=== PATIENT | male | born 1955 | race African-American/Black ===

== ENCOUNTER 2022-01-19 12:42 | Emergency (ER) | payer OTHER ==
[2022-01-19 13:44] LABS: Absolute Lymphocytes (CBC) 1.8 K/uL (0.7-4.9); Hematocrit 39.5 % (39.6-49.0); Lymphocytes % 26.1 % (15.3-44.8); MPV 10.9 fL (7.6-11.3); RBC Red Blood Cell Count 4.26 M/uL (4.33-5.43)
[2022-01-19 13:46] LABS: Protime INR 1.04
[2022-01-19] MEDS ORDERED: MORPHINE 2 MG/ML SYR ONE (13:46)
[2022-01-19] MEDS ORDERED: ASPIRIN 81 MG CHEWABLE TABLET ONE (13:46)
[2022-01-19 14:00] LABS: Albumin 3.7 g/dL (3.4-5.0); Bilirubin Direct 0.1 mg/dL (0-0.2); Bilirubin Total 0.6 mg/dL (0.2-1.0); Magnesium 1.9 mg/dL (1.8-2.4); Potassium 4.2 mmol/L (3.5-5.1); Protein, Total 6.9 g/dL (6.4-8.2); Troponin High Sensitivity 19.8 pg/mL (<58.9)
--- NOTE | 2022-01-19 15:01 | RAD REPORT ---
EXAM DESCRIPTION: RAD - Chest Single View - 01/19/2022 2:40 pm CLINICAL HISTORY: CHEST PAIN Chest pain. COMPARISON: No comparisons FINDINGS: Portable technique limits examination quality. The lungs are grossly clear. The heart is normal in size. No displaced fractures. IMPRESSION: No acute intrathoracic process suspected.
[2022-01-19] MEDS ORDERED: KETOROLAC 30 MG/ML INJ ONE (16:07)
--- NOTE | 2022-01-19 18:16 | EDPHYS ---
Physician Documentation [facility] Name: Michele Noel Age: 66 yrs Sex: Male : 1955 Arrival Date: 01/19/2022 Time: 12:42 Bed 13 Private MD: ED Physician Hernan Higuera HPI: 01/19 13:05 This 66 yrs old Black Male presents to ER via Ambulatory with complaints of Chest Pain. cp 13:05 The patient or guardian reports chest pain that is located primarily in the anterior cp chest wall, left. 13:05 Onset: this morning, about 0600. The pain does not radiate. Associated signs and cp symptoms: Pertinent negatives: abdominal pain, diaphoresis, dizziness, lower extremity pain, lower extremity swelling, palpitations, shortness of breath, syncope. The chest pain is described as pulling. Duration: The patient or guardian reports a single episode, that is still ongoing. Modifying factors: the symptoms are aggravated by movement of left arm and movement of neck. Severity of pain: in the emergency department the pain is unchanged despite home interventions. Historical: - Allergies: 12:54 No Known Allergies; ld1 - PMHx: 12:54 Hypertensive disorder; ld1 - PSHx: 12:54 None; ld1 - Immunization history:: Adult Immunizations up to date, Client reports receiving the 2nd dose of the Covid vaccine. - Social history:: Smoking status: Patient denies any tobacco usage or history of. Patient/guardian denies using alcohol. ROS: 13:10 Constitutional: Negative for body aches, chills, fever, poor PO intake. cp 13:10 Cardiovascular: Positive for chest pain. cp 13:10 Eyes: Negative for injury, pain, redness, and discharge. cp 13:10 ENT: Negative for drainage from ear(s), ear pain, difficulty swallowing, difficulty handling secretions. 13:10 Respiratory: Negative for cough, shortness of breath, wheezing. 13:10 Abdomen/GI: Negative for abdominal pain, nausea, vomiting, and diarrhea. 13:10 Back: Negative for pain at rest, pain with movement. 13:10 Neuro: Negative for altered mental status, dizziness, headache, weakness. 13:10 All other systems are negative. Exam: 13:05 ECG was reviewed by the Attending Physician. cp 13:10 Constitutional: The patient appears in no acute distress, alert, awake, cp non-diaphoretic, non-toxic, well developed, well nourished, obese. 13:10 Head/Face: Normocephalic, atraumatic. cp 13:10 Eyes: Periorbital structures: appear normal, Conjunctiva: normal, no exudate, no injection, Sclera: no appreciated abnormality, Lids and lashes: appear normal, bilaterally. 13:10 ENT: External ear(s): are unremarkable, Nose: is normal, Mouth: Lips: moist, Oral mucosa: pink and intact, moist, Posterior pharynx: Airway: no evidence of obstruction, patent. 13:10 Chest/axilla: Inspection: normal, Palpation: crepitus, is not appreciated, tenderness, that is moderate, of the left clavicle and anterior aspect of left upper chest, that partially reproduces the patient's complaints. 13:10 Cardiovascular: Rate: normal, Rhythm: regular, Pulses: Pulses are 2+ in right radial artery and left radial artery. Edema: is not appreciated, JVD: is not appreciated. 13:10 Respiratory: the patient does not display signs of respiratory distress, Respirations: normal, no use of accessory muscles, no retractions, labored breathing, is not present, Breath sounds: are clear throughout, no decreased breath sounds, no stridor, no wheezing. 13:10 Abdomen/GI: Inspection: abdomen appears normal, Palpation: abdomen is soft and non-tender, in all quadrants. 13:10 Back: pain, is absent, ROM is normal. 13:10 Skin: cellulitis, is not appreciated, no rash present. 13:10 Neuro: Orientation: to person, place \T\ time. Mentation: is normal, Motor: moves all fours, strength is normal, Sensation: is normal. 17:33 ECG was reviewed by the Attending Physician. cp Vital Signs: 12:53 BP 127 / 73; Pulse 74; Resp 15; Temp 98.3(TE); Pulse Ox 98% on R/A; Weight 107.95 kg; ld1 Height 5 ft. 8 in. (172.72 cm); Pain 8/10; 14:14 BP 134 / 82; Pulse 65; Resp 12; Pulse Ox 98% ; bp 15:20 BP 128 / 83; Pulse 58; Resp 15; Pulse Ox 99% ; bp 16:30 BP 142 / 76; Pulse 62; Resp 15; Pulse Ox 99% ; bp 18:30 BP 162 / 81; Pulse 63; Resp 11; Pulse Ox 99% ; bp 12:53 Body Mass Index 36.19 (107.95 kg, 172.72 cm) ld1 MDM: 13:00 Patient medically screened. 13:30 Differential diagnosis: acute myocardial infarction, acute pericarditis, chest wall cp pain, costochondritis, pleurisy, pneumonia, pneumothorax, pulmonary embolus, stable angina, unstable angina. 18:09 HEART Score: History: Slightly Suspicious (0), ECG: Non specific repolarization cp disturbance / LBTB / PM (1), Age: > or = 65 years (2), Risk Factors: 1 or 2 risk factors (1), [Hypertension] [Obesity] Troponin: < or = 1 x Normal Limit (0). 18:15 Data reviewed: vital signs, nurses notes, lab test result(s), EKG, radiologic studies, cp plain films. 18:15 The patient was given aspirin in the Emergency Department. Test interpretation: by ED cp physician or midlevel provider: ECG, plain radiologic studies. 01/19 13:03 Order name: Basic Metabolic Panel; Complete Time: 14:17 01/19 14:17 Interpretation: Normal except: GLUC 115; BUN 24; CRE 1.54; GFR 49. 01/19 13:03 Order name: CBC with Diff; Complete Time: 14:17 01/19 18:07 Interpretation: Normal except: RBC 4.26; HGB 13.2; HCT 39.5. 01/19 13:03 Order name: LFT's; Complete Time: 14:17 01/19 13:03 Order name: Magnesium; Complete Time: 14:17 01/19 13:03 Order name: NT PRO-BNP; Complete Time: 14:17 01/19 13:03 Order name: PT-INR; Complete Time: 14:17 01/19 13:03 Order name: Troponin HS; Complete Time: 14:17 01/19 14:18 Interpretation: Reviewed. 01/19 13:03 Order name: XRAY Chest (1 view); Complete Time: 15:44 01/19 15:44 Interpretation: Report review. 01/19 13:03 Order name: EKG; Complete Time: 13:04 01/19 16:24 Order name: EKG; Complete Time: 16:25 01/19 16:42 Order name: Troponin High Sensitivity; Complete Time: 18:06 01/19 13:03 Order name: Cardiac monitoring; Complete Time: 13: 01/19 13:03 Order name: EKG - Nurse/Tech; Complete Time: 13:05 01/19 13:03 Order name: IV Saline Lock; Complete Time: 14:14 01/19 13:03 Order name: Labs collected and sent; Complete Time: 14:14 01/19 13:03 Order name: O2 Per Protocol; Complete Time: 13: 01/19 13:03 Order name: O2 Sat Monitoring; Complete Time: 13: 01/19 16:24 Order name: EKG - Nurse/Tech; Complete Time: 17:31 cp EC:05 Rate is 72 beats/min. Rhythm is regular. NJ interval is normal. QRS interval is normal. cp QT interval is normal. T waves are Inverted in leads II, III, aVF, V4, V5, V6. Interpreted by me. Reviewed by me. 17:33 Rate is 59 beats/min. Rhythm is regular. NJ interval is normal. QRS interval is normal. cp QT interval is normal. T waves are Inverted in lead aVR. Interpreted by me. Reviewed by me. Administered Medications: 13:30 Drug: Aspirin Chewable Tablet 324 mg Route: PO; bp 14:12 Follow up: Response: No adverse reaction; Pain is decreased bp 13:30 Drug: morphine 2 mg Route: IVP; Rate: calculated rate; Site: right hand; bp 14:12 Follow up: Response: No adverse reaction; Pain is decreased bp 16:00 Drug: TORadol - (ketorolac) 15 mg Route: IVP; Site: right hand; bp 17:31 Follow up: Response: Pain is decreased bp Disposition Summary: 01/19/22 18:15 Discharge Ordered Location: Home cp Problem: new cp Symptoms: are resolved cp Condition: Stable cp Diagnosis - Chest pain, unspecified cp Followup: cp - With: Private Physician - When: 2 - 3 days - Reason: Recheck today's complaints Discharge Instructions: - Discharge Summary Sheet cp - Nonspecific Chest Pain, Adult cp - Aspirin and Your Heart cp Forms: - Medication Reconciliation Form cp - Thank You Letter cp - Antibiotic Education cp - Prescription Opioid Use cp Prescriptions: - Diclofenac Sodium 75 mg Oral tablet,delayed release (DR/EC) - take 1 tablet by ORAL route 2 times per day; 20 tablet; Refills: 0, Product cp Selection Permitted Signatures: Dispatcher [employer] EDMS Сергей Mcqueen PA PA cp Peltier, Brian RN RN bp Lucila Renee RN RN ld1
--- NOTE | 2022-01-19 18:16 | ER ---
Nurse's Notes [facility] Name: Michele Noel Age: 66 yrs Sex: Male : 1955 Arrival Date: 01/19/2022 Time: 12:42 Bed 13 Private MD: Diagnosis: Chest pain, unspecified Presentation: 01/19 12:53 Chief complaint: Patient states: Woke up this morning and I began having chest pains - ld1 feels like its pulling on my heart. Coronavirus screen: At this time, the client does not indicate any symptoms associated with coronavirus-19. Ebola Screen: No symptoms or risks identified at this time. Initial Sepsis Screen: Does the patient meet any 2 criteria? No. Patient's initial sepsis screen is negative. Does the patient have a suspected source of infection? No. Patient's initial sepsis screen is negative. Risk Assessment: Do you want to hurt yourself or someone else? Patient reports no desire to harm self or others. Onset of symptoms was January 19, 2022 at 12:54. 12:53 Method Of Arrival: Ambulatory ld1 12:53 Acuity: DARRON 3 ld1 Triage Assessment: 12:54 General: Appears in no apparent distress. comfortable, Behavior is calm, cooperative, ld1 appropriate for age. Pain: Complains of pain in chest Pain does not radiate. Pain currently is 9 out of 10 on a pain scale. Quality of pain is described as pullinh. EENT: No signs and/or symptoms were reported regarding the EENT system. Neuro: Level of Consciousness is awake, alert, obeys commands, Oriented to person, place, time, situation. Cardiovascular: Capillary refill < 3 seconds Patient's skin is warm and dry. Rhythm is sinus rhythm. Respiratory: Airway is patent Respiratory effort is even, unlabored, Respiratory pattern is regular, symmetrical. GI:. Historical: - Allergies: 12:54 No Known Allergies; ld1 - PMHx: 12:54 Hypertensive disorder; ld1 - PSHx: 12:54 None; ld1 - Immunization history:: Adult Immunizations up to date, Client reports receiving the 2nd dose of the Covid vaccine. - Social history:: Smoking status: Patient denies any tobacco usage or history of. Patient/guardian denies using alcohol. Screenin:30 Abuse screen: Denies threats or abuse. Denies injuries from another. Nutritional bp screening: No deficits noted. Tuberculosis screening: No symptoms or risk factors identified. Fall Risk None identified. Assessment: 13:00 General: SEE TRIAGE NOTE. bp 14:15 Reassessment: No changes from previously documented assessment. Patient and/or family bp updated on plan of care and expected duration. Pain level reassessed. 15:20 Reassessment: No changes from previously documented assessment. Patient and/or family bp updated on plan of care and expected duration. Pain level reassessed. 17:36 Reassessment: Patient appears in no apparent distress at this time. Patient and/or iw family updated on plan of care and expected duration. Pain level reassessed. Patient is alert, oriented x 3, equal unlabored respirations, skin warm/dry/pink. pt states he is ready to leave, will wait for repeat troponin level, sent at 1730. 18:27 Pain: Pain began 1 day ago. bp 18:29 Reassessment: PT D/C HOME AMBULATORY WITH FAMILY, DX WITH NONCARDIAC CHEST PAIN. bp Vital Signs: 12:53 BP 127 / 73; Pulse 74; Resp 15; Temp 98.3(TE); Pulse Ox 98% on R/A; Weight 107.95 kg; ld1 Height 5 ft. 8 in. (172.72 cm); Pain 8/10; 14:14 BP 134 / 82; Pulse 65; Resp 12; Pulse Ox 98% ; bp 15:20 BP 128 / 83; Pulse 58; Resp 15; Pulse Ox 99% ; bp 16:30 BP 142 / 76; Pulse 62; Resp 15; Pulse Ox 99% ; bp 18:30 BP 162 / 81; Pulse 63; Resp 11; Pulse Ox 99% ; bp 12:53 Body Mass Index 36.19 (107.95 kg, 172.72 cm) ld1 ED Course: 12:42 Patient arrived in ED. am2 12:49 Handy Gannon, LAUREN is Primary Nurse. bp 12:50 Сергей Mcqueen PA is PHCP. cp 12:50 Hernan Higuera MD is Attending Physician. cp 12:54 Triage completed. ld1 12:54 Arm band placed on right wrist. ld1 13:04 EKG done, by ED staff. tm3 13:30 Patient has correct armband on for positive identification. Bed in low position. Call bp light in reach. Side rails up X2. Client placed on continuous cardiac and pulse oximetry monitoring. NIBP monitoring applied. 13:30 Inserted saline lock: 22 gauge in right hand, using aseptic technique. bp 14:42 XRAY Chest (1 view) In Process Unspecified. EDMS 18:26 No provider procedures requiring assistance completed. IV discontinued, intact, iw bleeding controlled, No redness/swelling at site. Pressure dressing applied. Patient maintains SpO2 saturation greater than 95% on room air. Administered Medications: 13:30 Drug: Aspirin Chewable Tablet 324 mg Route: PO; bp 14:12 Follow up: Response: No adverse reaction; Pain is decreased bp 13:30 Drug: morphine 2 mg Route: IVP; Rate: calculated rate; Site: right hand; bp 14:12 Follow up: Response: No adverse reaction; Pain is decreased bp 16:00 Drug: TORadol - (ketorolac) 15 mg Route: IVP; Site: right hand; bp 17:31 Follow up: Response: Pain is decreased bp Medication: 18:27 VIS not applicable for this client. iw Outcome: 18:15 Discharge ordered by . jesus 18:26 Discharged to home ambulatory, with family. iw 18:26 Condition: good 18:26 Discharge instructions given to patient, Instructed on discharge instructions, follow up and referral plans. medication usage, Demonstrated understanding of instructions, follow-up care, medications, Prescriptions given X 1. 18:31 Patient left the ED. bp Signatures: Dispatcher [employer] EDMS Kingsley Horan tm3 Marsha Oreilly RN RN iw Сергей Mcqueen PA PA cp Eliana Oleary am2 Handy Gannon RN RN bp Lucila Renee RN RN ld1 Corrections: (The following items were deleted from the chart) 18:30 18:27 Pain: Pain began iw bp
[2022-01-19 18:38] VITALS: TEMP 98.3
[2022-01-19 18:41] VITALS: O2SAT 99
[2022-01-19 18:44] VITALS: BP 162/81
--- NOTE | 2022-01-22 07:55 | EKG ---
Test Date: 2022-01-19 Test Time: 12:57:38 Nuclear Criticality Safety Engineer: TM MEASUREMENT RESULTS: Intervals: Rate: 72 AL: 140 QRSD: 80 QT: 404 QTc: 442 [place]: P: 32 AL: 140 QRS: 28 T: -68 INTERPRETIVE STATEMENTS: Sinus rhythm with premature atrial complexes with aberrant conduction T wave abnormality, consider inferolateral ischemia Abnormal ECG No previous ECG available for comparison Electronically Signed On 01-22-22 07:50:53 CDT by Isreal Lynch
--- NOTE | 2022-01-22 07:55 | EKG ---
Test Date: 2022-01-19 Test Time: 17:30:21 Shoe Sticks Repairer: AGUSTINA MEASUREMENT RESULTS: Intervals: Rate: 59 RI: 154 QRSD: 82 QT: 442 QTc: 437 [place]: P: 36 RI: 154 QRS: 6 T: 1 INTERPRETIVE STATEMENTS: Sinus bradycardia with premature supraventricular complexes Nonspecific T wave abnormality Abnormal ECG Compared to ECG 01/19/2022 12:57:38 Sinus rhythm no longer present Aberrant conduction of supraventricular beat(s) no longer present Possible ischemia no longer present T-wave abnormality still present Electronically Signed On 01-22-22 07:50:50 CDT by Isreal Lynch
== END 2022-01-19 18:31 | disposition home or self-care (01) ==
LOC: ER 12:42
DX: R07.9 Chest pain, unspecified (principal); I10 Essential (primary) hypertension
CPT/HCPCS: 93005 ×2; 85025; 80048; 36415; 83735; 85610; 80076; 84484 ×2; 83880; 71045; 96375; 96374; 99285; J2270